=== PATIENT | female | born 1940 | race Caucasian/White ===

== ENCOUNTER 2021-01-25 11:47 | Inpatient (IN) | payer MEDICARE, OTHER ==
[~2021-01-25] VITALS: Ht 160 cm; Wt 75.8 kg
[2021-01-25 12:58] LABS: HEMOGLOBIN 12.2 gm/dl (12.3-15.3); RED BLOOD COUNT 3.91 M/UL (4.00-5.10); WHITE BLOOD COUNT 7.3 K/UL (4.5-11.0)
[2021-01-25 15:09] LABS: BUN/CREATININE RATIO 33 (0-10)
[2021-01-26 04:21] LABS: HEMOGLOBIN 11.2 gm/dl (12.3-15.3); RED BLOOD COUNT 3.59 M/UL (4.00-5.10); WHITE BLOOD COUNT 7.8 K/UL (4.5-11.0)
[2021-01-26 04:44] LABS: BUN/CREATININE RATIO 28 (0-10)
--- NOTE | 2021-01-26 06:19 | NUR ---
01/26/21 0050 PT HAIR SHAMPOOED AND NIX SHAMPOO PLACED. NIX LEFT ON FOR 10 MINS. COMBED THROUGH HAIR. PT HAD A LARGE AMOUNT OF LICE NOTED. THE WERE ALL AROUBND HAIR LINE.
--- NOTE | 2021-01-26 07:22 | NUR ---
01/25/21 Pt does not know what meds she takes. Pt states she gets her down there were they fish. Pharmacies are closed will let day shift know.
[2021-01-26] MEDS ORDERED: COZAAR 25MG TAB25 MG PO (10:56)
[2021-01-26] MEDS ORDERED: CARBIDOPA-LEVO1 EA14 PO (10:56)
[2021-01-26] MEDS ORDERED: PROZAC 20 MG CA20 MG PO (10:57)
[2021-01-26] MEDS ORDERED: HYDROCHLOROTHIA25 MG PO (10:57)
[2021-01-26] MEDS ORDERED: CRESTOR5 MG PO (10:57)
[2021-01-26] MEDS ORDERED: VITAMIN D21250 MCG PO (10:58)
[2021-01-26] MEDS ORDERED: LOW DOSE ASPIRI81 MG PO (10:59)
[2021-01-26] MEDS ORDERED: GLUCOPHAGE XR500 M1 PO (10:59)
[2021-01-27 04:19] LABS: WHITE BLOOD COUNT 8.4 K/UL (4.5-11.0)
[2021-01-27 04:21] LABS: RED BLOOD COUNT 3.23 M/UL (4.00-5.10)
[2021-01-27 04:51] LABS: BUN/CREATININE RATIO 27 (0-10)
--- NOTE | 2021-01-27 06:23 | NUR ---
PT HAS ALSEPT TONIGHT. HAS TAKEN IN SMALL AMOUNT. ONLYPUT 200 ML WILL LET DAY SHIFT NURSE KNOW.
[2021-01-28 06:40] LABS: HEMOGLOBIN 9.1 gm/dl (12.3-15.3); WHITE BLOOD COUNT 7.1 K/UL (4.5-11.0)
[2021-01-28 06:43] LABS: RED BLOOD COUNT 2.84 M/UL (4.00-5.10)
[2021-01-28] MEDS ORDERED: ELIQUIS 2.5 MG2.5 MG PO (09:57)
--- NOTE | 2021-01-28 15:32 | NUR ---
REPORT GIVEN TO ADMITTING NURSE DELMI MOULTON.
== END 2021-01-28 18:35 | DRG 481 ==
LOC: ER1 11:47 → M/S 14:36 → CDU 14:36 → M/S 19:11
PROVIDERS: Family Medicine; Orthopaedic Surgery; Physician Assistant; Physician Assistant Medical; ADMIT Internal Medicine
PROC: 0QH904Z Insertion of Internal Fixation Device into Left Femoral Shaft, Open Approach (ICD-10-PCS; principal; 2021-01-26 15:32)
DX: S72.042A Displaced fracture of base of neck of left femur, initial encounter for closed fracture (principal); E87.1 Hypo-osmolality and hyponatremia; D64.9 Anemia, unspecified; W01.0XXA Fall on same level from slipping, tripping and stumbling without subsequent striking against object, initial encounter; B85.0 Pediculosis due to Pediculus humanus capitis; G20 Parkinson's disease; E11.65 Type 2 diabetes mellitus with hyperglycemia; M85.89 Other specified disorders of bone density and structure, multiple sites; I49.5 Sick sinus syndrome; S50.02XA Contusion of left elbow, initial encounter; Z20.822 Contact with and (suspected) exposure to COVID-19; M48.02 Spinal stenosis, cervical region; E80.6 Other disorders of bilirubin metabolism; Y92.009 Unspecified place in unspecified non-institutional (private) residence as the place of occurrence of the external cause; Z91.81 History of falling; Z79.02 Long term (current) use of antithrombotics/antiplatelets; Z79.82 Long term (current) use of aspirin; Z95.0 Presence of cardiac pacemaker; Z79.84 Long term (current) use of oral hypoglycemic drugs
CPT/HCPCS: 36415; 70450; 71045; 72125; 73030; 73060; 73080; 73502; 73552; 73562; 76000; 80048; 80053; 82550; 82553; 82962; 83735; 83874; 84484; 85025; 85027; 85610; 86850; 86900; 86901; 93005; 97110; 97110-GP-CQ; 97162; 97167; 97530-GP-CQ; 99285; C1713; J0690; J1100; J2001; J2270; J2405; J2704; J2710; J3010; J7030; J7120; U0002